=== PATIENT | male | born 1960 | race Caucasian/White ===

== ENCOUNTER 2017-03-05 09:08 | Inpatient (IN) | payer OTHER ==
[2017-03-05 09:19] VITALS: BMI 26.2
[2017-03-05] MEDS ORDERED: Sodium Chloride 0.9% 1,000 ML IV ONE (09:19)
[2017-03-05] MEDS ORDERED: Sodium Chloride 0.9% 1,000 ML ONE (09:30)
[2017-03-05 09:52] LABS: BASO % 0.7 % (0.0-2.0); EOS # 0.1 K/uL (0.0-0.7); EOS % 1.1 % (0.0-4.0); HEMATOCRIT 42.2 % (35.0-51.0); LYMPH # 0.5 K/uL (1.0-4.3); LYMPH % 8.2 % (20.0-40.0); MEAN CELL VOLUME 92.8 fL (80.0-94.0); MEAN CORPUSCULAR HEMOGLOBIN 31.1 pg (27.0-31.0); MEAN CORPUSCULAR HGB CONC 33.5 g/dL (33.0-37.0); MEAN PLATELET VOLUME 9.1 fL (7.2-11.7); MONO # 0.5 K/uL (0.0-0.8); NRBC % 0.1 % (0.0-2.0); PLATELET COUNT 186 K/uL (130-400); RED CELL DISTRIBUTION WIDTH 14.8 % (11.5-14.5); WHITE BLOOD COUNT 5.7 K/uL (4.8-10.8)
[2017-03-05 10:02] LABS: CHLORIDE 94 mmol/L (98-107); POTASSIUM 4.9 mmol/L (3.6-5.2); SODIUM 132 mmol/L (132-148)
[2017-03-05 10:04] LABS: ALB/GLOB RATIO 1.4 (1.0-2.1); AST/SGOT 212 U/L (17-59); BILIRUBIN,TOTAL 1.9 mg/dL (0.2-1.3); CARBON DIOXIDE 26 mmol/L (22-30); GFR AFRICAN-AMERICAN > 60; TOTAL PROTEIN 8.8 g/dL (6.3-8.3)
[2017-03-05 10:05] LABS: ALCOHOL SERUM < 10 mg/dl (0-10); ALKALINE PHOSPHATASE 106 U/L (38-126); ALT/SGPT 81 U/L (21-72); BLOOD UREA NITROGEN 10 mg/dL (9-20); CALCIUM 8.4 mg/dl (8.6-10.4); GLUCOSE,RANDOM 162 mg/dL (75-110)
--- NOTE | 2017-03-05 10:15 | CT ---
PROCEDURE: CT HEAD WITHOUT CONTRAST. HISTORY: R/O Bleed COMPARISON: None available. TECHNIQUE: Axial computed tomography images were obtained through the head/brain without intravenous contrast. Radiation dose: Total exam DLP = 925.62 MGy-cm. This CT exam was performed using one or more of the following dose reduction techniques: Automated exposure control, adjustment of the mA and/or kV according to patient size, and/or use of iterative reconstruction technique. FINDINGS: HEMORRHAGE: No intracranial hemorrhage. BRAIN: No mass effect or edema. Intracranial atherosclerotic vascular calcifications. Mild scattered white matter hypodensities, which are nonspecific, but often seen with chronic microvascular ischemic disease. Please note that MRI with diffusion imaging is more sensitive in the detection of acute ischemic event. VENTRICLES: No hydrocephalus. CALVARIUM: Unremarkable. PARANASAL SINUSES: Unremarkable as visualized. No significant inflammatory changes. MASTOID AIR CELLS: Unremarkable as visualized. No inflammatory changes. OTHER FINDINGS: The right mandibular condyle displaced anterior medially. IMPRESSION: Anterior medial displacement of the right mandibular condyle; correlate clinically. No acute intracranial pathology identified.
--- NOTE | 2017-03-05 10:37 | RAD ---
PROCEDURE: CHEST RADIOGRAPH, 1 VIEW HISTORY: SOB COMPARISON: 06/05/2015 FINDINGS: LUNGS: Mild venous congestion. Bilateral hilar prominence. PLEURA: No pneumothorax or pleural fluid seen. CARDIOVASCULAR: Normal. OSSEOUS STRUCTURES: No significant abnormalities. VISUALIZED UPPER ABDOMEN: Normal. OTHER FINDINGS: None. IMPRESSION: Mild venous congestion. Bilateral hilar prominence.
[2017-03-05 10:48] LABS: RBC URINE 1 /hpf (0-3); URINE BACTERIA RARE (<OCC); URINE BILIRUBIN NEGATIVE (NEGATIVE); URINE BLOOD 1+ (NEGATIVE); URINE COLOR Yellow (YELLOW); URINE GLUCOSE (UA) NORMAL (Normal); URINE KETONE TRACE mg/dL (NEGATIVE); URINE LEUKOCYTE ESTERASE NEG Leu/uL (Negative); URINE PROTEIN NEGATIVE (NEGATIVE); URINE UROBILINOGEN NORMAL mg/dL (0.2-1.0); WBC URINE < 1 /hpf (0-5)
--- NOTE | 2017-03-05 10:50 | C.PDOC ---
History Of Present Illness <Tiki,Mela A - Last Filed: 03/05/17 18:41> <Marcelo Al - Last Filed: 03/05/17 19:46> 57 y/o male presents to the ED s/p questionable syncopal episode. Mother states she found him on the floor at home. Denies incontinence, or witnessed seizure activity. Denies vomiting, chest pain, SOB or any other complaints. Pt complaining of right sided dental pain. PMHx schizophrenia, seizures. (Mela Fairbanks) History Per: Patient History/Exam Limitations: None Onset/Duration Of Symptoms: Hrs Exacerbating Factor(s): Unknown Use Of Anticoag/Antiplatelets: No Speech Is: Normal Severity: Mild Recent travel outside of the [place]: No Additional History Per: Family Associated Symptoms: denies: Fever, Chest Pain, Headache, Vomiting, Incontinence <TikiMela Domonique - Last Filed: 03/05/17 18:41> <Marcelo Al - Last Filed: 03/05/17 19:46> Time Seen by Provider: 03/05/17 09:14 Chief Complaint (Nursing): Altered Mental Status Past Medical History Reviewed: Historical Data, Nursing Documentation, Vital Signs - Medical History PMH: Anxiety, Depression Family History: States: Unknown Family Hx - Social History Hx Alcohol Use: No Hx Substance Use: No <Tiki,Mela A - Last Filed: 03/05/17 18:41> Review Of Systems Except As Marked, All Systems Reviewed And Found Negative. Constitutional: Negative for: Fever ENT: Positive for: Other (right sided dental pain) Cardiovascular: Negative for: Chest Pain Respiratory: Negative for: Shortness of Breath Gastrointestinal: Negative for: Vomiting Genitourinary: Negative for: Incontinence Neurological: Negative for: Seizures, Headache <TikiMela Domonique - Last Filed: 03/05/17 18:41> Physical Exam - Physical Exam Appears: Non-toxic, No Acute Distress Skin: Warm, Dry, No Rash Head: Atraumatic, Normacephalic Eye(s): bilateral: Normal Inspection, PERRL, EOMI Nose: Normal Oral Mucosa: Moist Tongue: Normal Appearing, No Bite Lips: Normal Appearing, No Swelling Teeth: Normal Dentition Gingiva: Normal Appearing Throat: Normal, No Erythema Neck: Normal, Normal ROM, Supple Chest: Symmetrical Cardiovascular: Rhythm Regular, No Murmur Respiratory: Normal Breath Sounds, No Rales, No Rhonchi, No Wheezing Gastrointestinal/Abdominal: Normal Exam, Soft, No Tenderness Extremity: Normal ROM Extremity: Bilateral: Atraumatic Neurological/Psych: Oriented x3, Normal Speech, Normal Cognition, Normal Motor, Normal Sensation <Mela Fairbanks - Last Filed: 03/05/17 18:41> ED Course And Treatment - Laboratory Results Result Diagrams: 03/05/17 09:46 03/05/17 15:39 Lab Interpretation: Normal ECG: Interpreted By Az ECG Rhythm: Sinus Rhythm ECG Interpretation: Normal Rate From EC O2 Sat by Pulse Oximetry: 98 Pulse Ox Interpretation: Normal - Radiology CXR: Interpreted by Az CXR Interpretation: Yes: No Acute Disease - CT Scan/US No standard instances Other Rad Studies (CT/US): Read By Radiologist, Radiology Report Reviewed CT/US Interpretation: FINDINGS: HEMORRHAGE: No intracranial hemorrhage. BRAIN : No mass effect or edema. Intracranial atherosclerotic vascular calcifications. Mild scattered white matter hypodensities, which are nonspecific , but often seen with chronic microvascular ischemic disease. Please note that MRI with diffusion imaging is more sensitive in the detection of acute ischemic event. VENTRICLES: No hydrocephalus. CALVARIUM: Unremarkable. PARANASAL SINUSES: Unremarkable as visualized. No significant inflammatory changes. MASTOID AIR CELLS: Unremarkable as visualized. No inflammatory changes. OTHER FINDINGS: The right mandibular condyle displaced anterior medially. IMPRESSION : Anterior medial displacement of the right mandibular condyle; correlate clinically. No acute intracranial pathology identified. Progress Note: Patient arrived via BLS after a ? syncope event at home. on evaluation able to open and close mouth without difficulty. Plan: CT head, labs , UA, CXR, IV fluids. Treated with Haldol 5 mg IM and Ativan 2 mg IM. Treated with clonidine 0.1 mg PO and norvasc 5 mg PO. Treated with ativan 2 mg PO for agitation. On re-evaluation lungs clear, in no distress. EKG: NSR @ 100 (-) ST -T changes, normal EKG Reassessment Condition: Improved <Mela Fairbanks - Last Filed: 03/05/17 18:41> - Laboratory Results Result Diagrams: 03/05/17 09:46 03/05/17 15:39 ECG: Interpreted By Me, Viewed By Me ECG Rhythm: Sinus Rhythm ECG Interpretation: Normal, No Acute Changes Interpretation Of ECG: NSR, normal tracings. Pulse Ox Interpretation: Normal - Radiology CXR: Read By Radiologist CXR Interpretation: No: Infiltrates, Cardiomegaly, Pnemothorax - CT Scan/US No standard instances Other Rad Studies (CT/US): Read By Radiologist, Radiology Report Reviewed <Marcelo Al - Last Filed: 03/05/17 19:46> ED OBSERVATION <Mela Fairbanks - Last Filed: 03/05/17 18:41> <Marcelo Al - Last Filed: 03/05/17 19:46> - Goals of Observation Goals of observation are:: Psych screening (Mela Fairbanks) Disposition - Disposition Disposition Time: 19:00 - POA Present On Arrival: None <Mela Fairbanks - Last Filed: 03/05/17 18:41> <Marcelo Al - Last Filed: 03/05/17 19:46> - Disposition Condition: STABLE - Clinical Impression Clinical Impression: Schizophrenia - PA / [employer] OPERATOR / Resident Statement MD/DO has reviewed & agrees with the documentation as recorded. - Scribe Statement The provider has reviewed the documentation as recorded by the Scribe <Mlea Fairbanks - Last Filed: 03/05/17 18:41> <Marcelo Al - Last Filed: 03/05/17 19:46> - Scribe Statement Vinicius Gomez All medical record entries made by the Scribe were at my direction and personally dictated by me. I have reviewed the chart and agree that the record accurately reflects my personal performance of the history, physical exam, medical decision making, and the department course for this patient. I have also personally directed, reviewed, and agree with the discharge instructions and disposition. (Mela Fairbanks) Physician Patient Turnover Patient Signed Over To: Marcelo Al Handoff Comments: [facility] <Mela Fairbanks - Last Filed: 03/05/17 18:41>
[2017-03-05 11:31] LABS: EOSINOPHIL 1 % (0-4); NEUTROPHIL 82 % (50-75); TOTAL CELLS COUNTED 100
[2017-03-05 16:09] LABS: CHLORIDE 95 mmol/L (98-107); POTASSIUM 3.2 mmol/L (3.6-5.2); SODIUM 133 mmol/L (132-148)
[2017-03-05 16:11] LABS: CARBON DIOXIDE 28 mmol/L (22-30); GFR AFRICAN-AMERICAN > 60
[2017-03-05 16:12] LABS: ALB/GLOB RATIO 1.1 (1.0-2.1); ALKALINE PHOSPHATASE 102 U/L (38-126); ALT/SGPT 87 U/L (21-72); AST/SGOT 224 U/L (17-59); BILIRUBIN,TOTAL 1.2 mg/dL (0.2-1.3); BLOOD UREA NITROGEN 10 mg/dL (9-20); CALCIUM 8.3 mg/dl (8.6-10.4); GLUCOSE,RANDOM 119 mg/dL (75-110); TOTAL PROTEIN 7.8 g/dL (6.3-8.3)
[2017-03-05] MEDS ORDERED: Potassium Chloride 20 mEq/15 ml LIQ UD PO STA (19:37)
[2017-03-05] MEDS ORDERED: Potassium Chloride 20 mEq ER Tab PO ONE (20:40)
[2017-03-05] MEDS ORDERED: Potassium Chloride 20 mEq ER Tab PO STA (20:47)
[2017-03-06 00:40] LABS: CHLORIDE 98 mmol/L (98-107); SODIUM 135 mmol/L (132-148)
[2017-03-06 00:42] LABS: BLOOD UREA NITROGEN 7 mg/dL (9-20); CARBON DIOXIDE 25 mmol/L (22-30); GFR AFRICAN-AMERICAN > 60; GLUCOSE,RANDOM 115 mg/dL (75-110)
[2017-03-06 00:43] LABS: CALCIUM 8.4 mg/dl (8.6-10.4)
[2017-03-06] MEDS: Folic Acid 1 MG, Thiamine 100 MG, Multivitamin (MVI) 10 ML in Dextrose 5% In Water 1,00... IV SCH ×2 (04:45→14:30)
[2017-03-06 04:52] LABS: CHLORIDE 99 mmol/L (98-107); POTASSIUM 3.1 mmol/L (3.6-5.2); SODIUM 135 mmol/L (132-148)
[2017-03-06 04:54] LABS: BILIRUBIN,TOTAL 1.3 mg/dL (0.2-1.3); GFR AFRICAN-AMERICAN > 60
[2017-03-06 04:55] LABS: ALB/GLOB RATIO 1.1 (1.0-2.1); ALKALINE PHOSPHATASE 103 U/L (38-126); ALT/SGPT 94 U/L (21-72); AST/SGOT 206 U/L (17-59); BLOOD UREA NITROGEN 6 mg/dL (9-20); CARBON DIOXIDE 26 mmol/L (22-30); GLUCOSE,RANDOM 112 mg/dL (75-110); TOTAL PROTEIN 8.1 g/dL (6.3-8.3)
[2017-03-06 04:56] LABS: CALCIUM 8.6 mg/dl (8.6-10.4)
--- NOTE | 2017-03-06 05:26 | CP.PCM.HP ---
History of Present Illness - History of Present Illness History of Present Illness: CC: AMS 57 M with PMH of ETOH abuse, anxiety, depression, schizophrenia was brought in by EMS to [facility] ED for complaint of altered mental status. As per ED, history was provided by patient's family. Patient was upstairs in bathroom when the family heard a loud thud. Family went upstairs and saw patient shaking while foaming at the mouth. EMS was called and when patient came to he became very combative. Upon arrival, he was given multiple doses of haldol and ativan. Psychiatry was initiated contacted for the admission. They called [facility] [place] their unit. [facility] screener arrived but patient was agitated, therefore unable to have an appropriate conversation. It was determined that patient was medically unstable to be admitted to psychiatry so the admission was changed for telemetry. Patient has an extensive history of drinking but family stated he had previously quit. ROS unotainable due to mental status. PMH: ETOH abuse, anxiety, depression, schizophrenia Meds: None Allergy: NKDA PSH: None Hosp: Unknown FH: Unknown Social: lives with family, as per family extensive drinker, unknown for tobacco/ illicit drug use Present on Admission - Present on Admission Any Indicators Present on Admission: No History of DVT/PE: No History of Uncontrolled Diabetes: No Urinary Catheter: No Decubitus Ulcer Present: No Review of Systems - Review of Systems Systems not reviewed;Unavailable: Altered Mental Status Past Patient History - Past Social History Smoking Status: Never Smoked - CARDIAC Hx Cardiac Disorders: No Hx Hypertension: No - PULMONARY Hx Tuberculosis: No - NEUROLOGICAL HX Cerebrovascular Accident: No Hx Seizures: No - HEENT Hx Deafness: Yes (rt ear) - HEMATOLOGICAL/ONCOLOGICAL Hx Cancer: No Hx Human Immunodeficiency Virus (HIV): No - GENITOURINARY/GYNECOLOGICAL Hx Sexually Transmitted Disorders: No - PSYCHIATRIC Hx Anxiety: Yes Hx Depression: Yes Hx Substance Use: No - SURGICAL HISTORY Hx Surgeries: No - ANESTHESIA Hx Anesthesia: No Meds Allergies/Adverse Reactions: Allergies Allergy/AdvReac Type Severity Reaction Status Date / Time No Known Allergies Allergy Verified 03/05/17 09:26 Physical Exam - Constitutional Appears: Confused - Head Exam Head Exam: NORMOCEPHALIC - Eye Exam Eye Exam: EOMI, Normal appearance Pupil Exam: PERRL - ENT Exam ENT Exam: Mucous Membranes Moist - Neck Exam Neck exam: Positive for: Normal Inspection - Respiratory Exam Respiratory Exam: Clear to Auscultation Bilateral, NORMAL BREATHING PATTERN - Cardiovascular Exam Cardiovascular Exam: Tachycardia, REGULAR RHYTHM, +S1, +S2 - GI/Abdominal Exam GI & Abdominal Exam: Distended (mild), Normal Bowel Sounds, Soft. absent: Firm , Guarding, Rebound - Extremities Exam Extremities exam: Positive for: normal capillary refill, pedal pulses present ( R > L, PT 2 + bilateral). Negative for: pedal edema - Back Exam Back exam: absent: CVA tenderness (L), CVA tenderness (R) - Neurological Exam Neurological exam: Altered - Psychiatric Exam Psychiatric exam: Flat Affect - Skin Skin Exam: Dry, Intact Results - Vital Signs Recent Vital Signs: Last Vital Signs Temp 98.3 F 03/05/17 09:11 Pulse 92 H 03/06/17 03:56 Resp 21 03/06/17 03:56 BP 141/110 H 03/06/17 03:56 Pulse Ox 94 L 03/06/17 03:56 - Labs Result Diagrams: 03/05/17 09:46 03/06/17 04:25 Labs: Laboratory Results - last 24 hr 03/06/17 03/06/17 04:25 04:25 PT 11.2 INR 1.0 APTT 31 Sodium 135 Potassium 3.1 L Chloride 99 Carbon Dioxide 26 Anion Gap 13 BUN 6 L Creatinine 0.7 L Est GFR ( Amer) > 60 Est GFR (Non-Af Amer) > 60 Random Glucose 112 H Calcium 8.6 Total Bilirubin 1.3 AST 206 H ALT 94 H Alkaline Phosphatase 103 NT-Pro-B Natriuret Pep 335 Total Protein 8.1 Albumin 4.3 Globulin 3.9 Albumin/Globulin Ratio 1.1 Assessment & Plan - Assessment and Plan (Free Text) Plan: 1. Suspected Seizure could be due to ETOH withdrawal possibility of DTs telemetry NPO except Meds Critical care consult, Dr. Zhu, help appreciated Psychiatry consult, Dr Medrano, help appreciated Tox screen negative, Alcohol < 10 Banana bag 100 cc/hr Ativan 2 mg IVP Q3H Haldol 5 mg IM Q8H PRN Congentin 2 mg PO Q6H PRN CIWA protocol Aspiration Precautions Seizure precautions Fall risk protocol 2. Transaminitis Downtrending T. bilil 1.3 Ast 206 Alt 94 Alk phos 103 3. Hypokalemia K+ 3.1 KCL 10 mEq IVPB x 3 Mg and Phos ordered for this AM recheck and replenish as needed 4. Schizophrenia Psychiatry consult, Dr Medrano, help appreciated Ativan 2 mg IVP Q3H Haldol 5 mg IM Q8H PRN Congentin 2 mg PO Q6H PRN 5. Anxiety/Depression Psychiatry consult, Dr Medrano, help appreciated Trazodone 50 mg PO HS 6. Prophylactic Measures Protonix 40 mg IVP Scds Zofran 4 mg IVP Q6H
[2017-03-06 06:38] VITALS: RESP 20
[2017-03-06 08:26] LABS: BASO # 0.1 K/uL (0.0-0.2); BASO % 0.8 % (0.0-2.0); EOS # 0.1 K/uL (0.0-0.7); EOS % 1.2 % (0.0-4.0); LYMPH # 0.7 K/uL (1.0-4.3); LYMPH % 9.1 % (20.0-40.0); MEAN CELL VOLUME 92.5 fL (80.0-94.0); MEAN CORPUSCULAR HGB CONC 33.6 g/dL (33.0-37.0); MEAN PLATELET VOLUME 9.1 fL (7.2-11.7); MONO # 0.7 K/uL (0.0-0.8); MONO % 9.3 % (0.0-10.0); PLATELET COUNT 166 K/uL (130-400); WHITE BLOOD COUNT 7.2 K/uL (4.8-10.8)
[2017-03-06 08:44] LABS: PHOSPHOROUS 2.8 mg/dL (2.5-4.5)
[2017-03-06 08:45] LABS: MAGNESIUM 2.1 mg/dL (1.6-2.3)
[2017-03-06 09:07] LABS: T4 7.55 ug/dL (5.5-11.0)
[2017-03-06 09:20] LABS: THYROID STIMULATING HORMONE 4.02 mIU/L (0.46-4.68)
[2017-03-06 09:32] LABS: EOSINOPHIL 1 % (0-4); NEUTROPHIL 79 % (50-75); TOTAL CELLS COUNTED 100
[2017-03-06] MEDS ORDERED: Potassium Chloride 20 mEq ER Tab PO SCH (10:00)
--- NOTE | 2017-03-06 12:10 | CP.PCM.CON ---
History of Present Illness - History of Present Illness History of Present Illness: 57-year-old male with past medical history of depression, anxiety, schizophrenia , ethanol abuse. Admitted for EtOH withdrawal. ICU consulted for possibility of delirium tremens. Past Patient History - Past Medical History & Family History Past Medical History?: Yes - Past Social History Smoking Status: Never Smoked - CARDIAC Hx Cardiac Disorders: No Hx Hypertension: No - PULMONARY Hx Tuberculosis: No - NEUROLOGICAL HX Cerebrovascular Accident: No Hx Seizures: No - HEENT Hx Deafness: Yes (rt ear) - RENAL Hx Chronic Kidney Disease: No - ENDOCRINE/METABOLIC Hx Endocrine Disorders: No - HEMATOLOGICAL/ONCOLOGICAL Hx Cancer: No Hx Human Immunodeficiency Virus (HIV): No - INTEGUMENTARY Hx Dermatological Problems: No - MUSCULOSKELETAL/RHEUMATOLOGICAL Hx Musculoskeletal Disorders: Yes Hx Falls: Yes - GASTROINTESTINAL Hx Gastrointestinal Disorders: No - GENITOURINARY/GYNECOLOGICAL Hx Sexually Transmitted Disorders: No - PSYCHIATRIC Hx Anxiety: Yes Hx Depression: Yes Hx Substance Use: No - SURGICAL HISTORY Hx Surgeries: No - ANESTHESIA Hx Anesthesia: No Meds Allergies/Adverse Reactions: Allergies Allergy/AdvReac Type Severity Reaction Status Date / Time No Known Allergies Allergy Verified 03/05/17 09:26 - Medications Medications: Current Medications Benztropine Mesylate (Cogentin) 2 mg PO Q6H PRN PRN Reason: Extra Pyramidal Symptoms Last Admin: 03/05/17 16:53 Dose: 2 mg Diphenhydramine HCl (Benadryl) 50 mg PO Q6 PRN PRN Reason: Extra Pyramidal Symptoms Haloperidol (Haldol) 5 mg PO Q8 PRN PRN Reason: Moderate Agitation Last Admin: 03/05/17 16:53 Dose: 5 mg Haloperidol Lactate (Haldol) 5 mg IM Q8 PRN PRN Reason: Moderate Agitation Heparin Sodium (Porcine) (Heparin) 5,000 units SC Q12 STEVEN Last Admin: 03/06/17 09:54 Dose: 5,000 units Folic Acid 1 mg/ Thiamine HCl 100 mg/ Multivitamins/Vitamin C 10 ml/ Dextrose 1 ,011.2 mls @ 100 mls/hr IV .Q10H7M STEVEN Last Admin: 03/06/17 04:45 Dose: 100 mls/hr Lorazepam (Ativan) 2 mg IVP Q3H PRN PRN Reason: Anxiety Lorazepam (Ativan) 1 mg IVP Q6H STEVEN Last Admin: 03/06/17 09:39 Dose: 1 mg Ondansetron HCl (Zofran Inj) 4 mg IVP Q6 PRN PRN Reason: Nausea/Vomiting Pantoprazole Sodium (Protonix Inj) 40 mg IVP DAILY [facility] Last Admin: 03/06/17 09:50 Dose: 40 mg Trazodone HCl (Desyrel) 50 mg PO HS [facility] Last Admin: 03/05/17 21:15 Dose: 50 mg Results - Vital Signs Recent Vital Signs: Last Vital Signs Temp 98.0 F 03/06/17 08:46 Pulse 98 H 03/06/17 08:46 Resp 20 03/06/17 08:46 BP 153/100 H 03/06/17 08:46 Pulse Ox 97 03/06/17 08:46 - Labs Result Diagrams: 03/06/17 08:16 03/06/17 04:25 Labs: Laboratory Results - last 24 hr 03/06/17 03/06/17 03/06/17 04:25 04:25 06:48 WBC RBC Hgb Hct MCV MCH MCHC RDW Plt Count MPV Neut % (Auto) Lymph % (Auto) Dubois % (Auto) Eos % (Auto) Baso % (Auto) Neut # Lymph # Dubois # Eos # Baso # Neutrophils % (Manual) Band Neutrophils % Lymphocytes % (Manual) Monocytes % (Manual) Eosinophils % (Manual) Platelet Estimate RBC Morphology PT 11.2 INR 1.0 APTT 31 Sodium 135 Potassium 3.1 L Chloride 99 Carbon Dioxide 26 Anion Gap 13 BUN 6 L Creatinine 0.7 L Est GFR ( Amer) > 60 Est GFR (Non-Af Amer) > 60 POC Glucose (mg/dL) 122 H Random Glucose 112 H Hemoglobin A1c Calcium 8.6 Phosphorus Magnesium Total Bilirubin 1.3 AST 206 H ALT 94 H Alkaline Phosphatase 103 NT-Pro-B Natriuret Pep 335 Total Protein 8.1 Albumin 4.3 Globulin 3.9 Albumin/Globulin Ratio 1.1 Triglycerides Cholesterol LDL Cholesterol Direct HDL Cholesterol Thyroxine (T4) TSH 3rd Generation 03/06/17 03/06/17 03/06/17 08:16 08:16 08:16 WBC 7.2 RBC 4.43 Hgb 13.8 Hct 41.0 MCV 92.5 MCH 31.0 MCHC 33.6 RDW 15.0 H Plt Count 166 MPV 9.1 Neut % (Auto) 79.6 H Lymph % (Auto) 9.1 L Dubois % (Auto) 9.3 Eos % (Auto) 1.2 Baso % (Auto) 0.8 Neut # 5.7 Lymph # 0.7 L Dubois # 0.7 Eos # 0.1 Baso # 0.1 Neutrophils % (Manual) 79 H Band Neutrophils % 1 Lymphocytes % (Manual) 11 L Monocytes % (Manual) 8 Eosinophils % (Manual) 1 Platelet Estimate Normal RBC Morphology Normal PT INR APTT Sodium Potassium Chloride Carbon Dioxide Anion Gap BUN Creatinine Est GFR ( Amer) Est GFR (Non-Af Amer) POC Glucose (mg/dL) Random Glucose Hemoglobin A1c 5.5 Calcium Phosphorus 2.8 Magnesium 2.1 Total Bilirubin AST ALT Alkaline Phosphatase NT-Pro-B Natriuret Pep 322 Total Protein Albumin Globulin Albumin/Globulin Ratio Triglycerides 42 Cholesterol 210 H LDL Cholesterol Direct 41 HDL Cholesterol 125 H Thyroxine (T4) 7.55 TSH 3rd Generation 4.02 Assessment & Plan (1) Alcohol withdrawal syndrome Assessment and Plan: 57-year-old male with past medical history of depression, anxiety, schizophrenia , ethanol abuse. Admitted for EtOH withdrawal. Neuro: Patient is alert but disoriented. Patient has tremors, and currently not having hallucinations. Patient has a history of schizophrenia, so hallucinations may be his baseline since he is noncompliant with medications. Continue Haldol when necessary, continue CIWA protocol and increased Ativan dosing, both basal and when necessary dosing. Currently not any DTs, but most likely ethanol withdrawal complicated by schizophrenia. I recommend avoiding use of Benadryl as this can increase delirium. Pulm: No acute issues, breathing spontaneously on room air. CV: Hemodynamically stable Hem: No acute issues Renal: No acute issues, urine output within normal limits, we will monitor. Endo: No acute issues GI: Nothing by mouth for now with current delirium. ID: No acute issues DVT proph - heparin subcutaneous GI proph - none currently indicated arreola for strict I/O's during acute illness Code status - full code Patient is currently clinically stable going through EtOH withdrawal, please reconsult ICU if patient's clinical status worsens. Crtical Care Time spent 35 minutes The documented time is cumulative and includes review of patient data/exams/labs /chart review and examination of the patient on rounds and throughout the day; time is exclusive of any procedures or teaching time. Status: Acute
--- NOTE | 2017-03-06 15:15 | PCM.PSYCH ---
Initial Psychiatric Evaluation - Initial Psychiatric Evaluation History of Present Illness and Precipitating Events: Came to see the patient, but patient was delirious, and was not oriented to time place and person. Will come later to evaluate. Current Medications: Active Medications Generic Name Dose Route Start Last Admin Trade Name Freq PRN Reason Stop Dose Admin Benztropine Mesylate 2 mg 03/05/17 15:00 03/05/17 16:53 Cogentin PO 2 mg Q6H PRN Administration Extra Pyramidal Symptoms Haloperidol 5 mg 03/05/17 14:43 03/05/17 16:53 Haldol PO 5 mg Q8 PRN Administration Moderate Agitation Haloperidol Lactate 5 mg 03/05/17 14:43 Haldol IM Q8 PRN Moderate Agitation Heparin Sodium (Porcine) 5,000 units 03/06/17 10:00 03/06/17 09:54 Heparin SC 5,000 units Q12 STEVEN Administration Folic Acid 1 mg/ Thiamine HCl 1,011.2 mls @ 100 mls/hr 03/06/17 04:00 14:30 100 mg/ Multivitamins/Vitamin IV 100 mls/hr C 10 ml/ Dextrose .Q10H7M STEVEN Administration Lorazepam 2 mg 03/06/17 05:17 Ativan IVP Q3H PRN Anxiety Lorazepam 1 mg 03/06/17 09:15 03/06/17 09:39 Ativan IVP 1 mg Q6H STEVEN Administration Ondansetron HCl 4 mg 03/06/17 05:18 Zofran Inj IVP Q6 PRN Nausea/Vomiting Pantoprazole Sodium 40 mg 03/06/17 10:00 03/06/17 09:50 Protonix Inj IVP 40 mg DAILY STEVEN Administration Trazodone HCl 50 mg 03/05/17 22:00 03/05/17 21:15 Desyrel PO 50 mg HS STEVEN Administration Past Psychiatric History - Past Psychiatric History Pertinent Medical Hx (Current Medical&Sleep Prob, Allergies): Allergies Allergy/AdvReac Type Severity Reaction Status Date / Time No Known Allergies Allergy Verified 03/05/17 09:26 No Known Home Med [No Known Home Med] 06/05/15
[2017-03-06] MEDS ORDERED: Folic Acid 1 MG, Thiamine 100 MG, Multivitamin (MVI) 10 ML in Dextrose 5% In Water 1,00... IV ONE (15:45)
--- NOTE | 2017-03-06 18:17 | CP.PCM.PN ---
<Malika León - Last Filed: 03/06/17 22:15> Subjective - Date & Time of Evaluation Date of Evaluation: 03/06/17 Time of Evaluation: 10:00 - Subjective Subjective: PGY1 Medicine note for Dr. Crawley Pt seen and evaluated at bedside. Nursing reports no adverse events overnight. Patient is AO x 0. Patient seems comfortable and in no acute distress. Pt responds to his name, but is unable to answer questions about his health. ROS unobtainable. Objective - Vital Signs/Intake and Output Vital Signs (last 24 hours): Temp Pulse Resp BP Pulse Ox 98.0 F 98 H 20 153/100 H 97 03/06/17 08:46 03/06/17 08:46 03/06/17 08:46 03/06/17 08:46 03/06/17 08:46 - Medications Medications: Current Medications Benztropine Mesylate (Cogentin) 2 mg PO Q6H PRN PRN Reason: Extra Pyramidal Symptoms Last Admin: 03/05/17 16:53 Dose: 2 mg Chlordiazepoxide (Librium) 50 mg PO Q6H [facility] Heparin Sodium (Porcine) (Heparin) 5,000 units SC Q12 [facility] Last Admin: 03/06/17 09:54 Dose: 5,000 units Folic Acid 1 mg/ Thiamine HCl 100 mg/ Multivitamins/Vitamin C 10 ml/ Dextrose 1 ,011.2 mls @ 100 mls/hr IV .Q10H7M ONE Stop: 03/07/17 01:51 Ondansetron HCl (Zofran Inj) 4 mg IVP Q6 PRN PRN Reason: Nausea/Vomiting Pantoprazole Sodium (Protonix Inj) 40 mg IVP DAILY [facility] Last Admin: 03/06/17 09:50 Dose: 40 mg Risperidone (Risperdal Tab) 0.5 mg PO Q12 [facility] Trazodone HCl (Desyrel) 50 mg PO HS [facility] Last Admin: 03/05/17 21:15 Dose: 50 mg - Labs Labs: 03/06/17 08:16 03/06/17 04:25 PT 11.2 SECONDS (9.7-12.2) 03/06/17 04:25 INR 1.0 03/06/17 04:25 APTT 31 SECONDS (21-34) 03/06/17 04:25 - Constitutional Appears: Confused - Head Exam Head Exam: ATRAUMATIC, NORMAL INSPECTION, NORMOCEPHALIC - Eye Exam Eye Exam: Normal appearance. absent: Conjunctival injection, Scleral icterus - ENT Exam ENT Exam: Mucous Membranes Dry - Neck Exam Neck Exam: Normal Inspection - Respiratory Exam Respiratory Exam: Clear to Ausculation Bilateral, NORMAL BREATHING PATTERN. absent: Accessory Muscle Use, Rales, Rhonchi, Wheezes - Cardiovascular Exam Cardiovascular Exam: Tachycardia, REGULAR RHYTHM, +S1, +S2 - GI/Abdominal Exam GI & Abdominal Exam: Soft, Normal Bowel Sounds. absent: Firm, Guarding, Rigid - Extremities Exam Extremities Exam: Normal Capillary Refill, Normal Inspection. absent: Pedal Edema Additional comments: hands in mittens - Neurological Exam Neurological Exam: Alert, Awake. absent: Oriented x3 - Psychiatric Exam Additional comments: confused - Skin Skin Exam: Dry, Intact Assessment and Plan - Assessment and Plan (Free Text) Assessment: 57 M with PMH of ETOH abuse, anxiety, depression, schizophrenia was brought in by EMS for AMS Plan: 1. Suspected Seizure could be due to ETOH withdrawal possibility of DTs as patient had DT in the past as per family telemetry NPO except Meds Patient has hx of DTs as per friend at bedside Tox screen negative, Alcohol < 10 Banana bag 100 cc/hr Librium 100mg po one time Librium 50mg po q6h prn HOLD IF PATIENT IS ASLEEP Congentin 2 mg PO Q6H PRN CIWA protocol Aspiration Precautions Seizure precautions Fall risk protocol Critical care consult, Dr. Zhu, help appreciated Psychiatry consult, Dr Medrano, help appreciated 2. Transaminitis Downtrending T. bilil 1.3 Ast 206 Alt 94 Alk phos 103 3. Hypokalemia K+ 3.1 KCL 10 mEq IVPB x 3 Mg and Phos ordered for this AM recheck and replenish as needed 4. Schizophrenia Psychiatry consult, Dr Medrano, help appreciated Cogentin 2 mg PO Q6H PRN 5. Anxiety/Depression Psychiatry consult, Dr Medrano, help appreciated Trazodone 50 mg PO HS Risperidone 0.5mg po q12 6. Prophylactic Measures Protonix 40 mg IVP Scds Zofran 4 mg IVP Q6H Heparin 5000U SC q12 Plan discussed with Dr Misbah León PGY1 <Poli Crawley Jr. - Last Filed: 03/08/17 13:32> Objective - Vital Signs/Intake and Output Vital Signs (last 24 hours): Temp Pulse Resp BP Pulse Ox 97.8 F 110 H 20 141/98 H 95 03/07/17 23:20 03/07/17 23:20 03/07/17 23:20 03/07/17 23:20 03/07/17 23:20 Intake and Output: 03/08/17 03/08/17 06:59 18:59 Intake Total 1100 Balance 1100 - Labs Labs: 03/07/17 07:11 03/07/17 07:11 PT 12.0 SECONDS (9.7-12.2) 03/07/17 07:11 INR 1.1 03/07/17 07:11 APTT 29 SECONDS (21-34) 03/07/17 07:11 Attending/Attestation - Attestation I have personally seen and examined this patient.: Yes I have fully participated in the care of the patient.: Yes I have reviewed all pertinent clinical information, including history, physical exam and plan: Yes Notes (Text): 03/08/17 13:32 Agree with resident note and findings
[2017-03-07 07:24] LABS: BASO # 0.1 K/uL (0.0-0.2); BASO % 0.9 % (0.0-2.0); EOS # 0.1 K/uL (0.0-0.7); EOS % 1.3 % (0.0-4.0); HEMATOCRIT 42.5 % (35.0-51.0); INR 1.1; LYMPH # 0.6 K/uL (1.0-4.3); LYMPH % 8.2 % (20.0-40.0); MEAN CELL VOLUME 91.8 fL (80.0-94.0); MEAN CORPUSCULAR HEMOGLOBIN 30.8 pg (27.0-31.0); MEAN CORPUSCULAR HGB CONC 33.5 g/dL (33.0-37.0); MEAN PLATELET VOLUME 9.1 fL (7.2-11.7); MONO # 0.7 K/uL (0.0-0.8); MONO % 10.3 % (0.0-10.0); NRBC % 0.4 % (0.0-2.0); PLATELET COUNT 190 K/uL (130-400); RED CELL DISTRIBUTION WIDTH 14.6 % (11.5-14.5); WHITE BLOOD COUNT 7.1 K/uL (4.8-10.8)
[2017-03-07 07:32] LABS: CHLORIDE 98 mmol/L (98-107)
--- NOTE | 2017-03-07 07:32 | CP.PCM.PN ---
<Malika León - Last Filed: 03/07/17 21:53> Subjective - Date & Time of Evaluation Date of Evaluation: 03/07/17 Time of Evaluation: 10:15 - Subjective Subjective: PGY1 Medicine note for Dr. Crawley Pt seen and evaluated at bedside. Nursing reports no adverse events overnight. Patient is AO x 0. Patient continues to speak incoherently and ROS unobtainable. Objective - Vital Signs/Intake and Output Vital Signs (last 24 hours): Temp Pulse Resp BP Pulse Ox 98.8 F 111 H 20 145/98 H 97 03/06/17 23:00 03/06/17 23:00 03/06/17 23:00 03/06/17 23:00 03/06/17 23:00 Intake and Output: 03/07/17 03/07/17 06:59 18:59 Intake Total 1000 Output Total 4100 Balance -3100 - Medications Medications: Current Medications Benztropine Mesylate (Cogentin) 2 mg PO Q6H PRN PRN Reason: Extra Pyramidal Symptoms Last Admin: 03/07/17 04:32 Dose: 2 mg Chlordiazepoxide (Librium) 50 mg PO Q6H [facility] Last Admin: 03/07/17 06:30 Dose: Not Given Heparin Sodium (Porcine) (Heparin) 5,000 units SC Q12 [facility] Last Admin: 03/06/17 22:10 Dose: 5,000 units Ondansetron HCl (Zofran Inj) 4 mg IVP Q6 PRN PRN Reason: Nausea/Vomiting Pantoprazole Sodium (Protonix Inj) 40 mg IVP DAILY [facility] Last Admin: 03/06/17 09:50 Dose: 40 mg Risperidone (Risperdal Tab) 0.5 mg PO Q12 [facility] Last Admin: 03/06/17 23:00 Dose: 0.5 mg Trazodone HCl (Desyrel) 50 mg PO HS [facility] Last Admin: 03/06/17 23:01 Dose: 50 mg - Labs Labs: 03/06/17 08:16 03/06/17 04:25 PT 12.0 SECONDS (9.7-12.2) 03/07/17 07:11 INR 1.1 03/07/17 07:11 APTT 29 SECONDS (21-34) 03/07/17 07:11 - Constitutional Appears: Non-toxic, No Acute Distress - Head Exam Head Exam: NORMAL INSPECTION - Eye Exam Eye Exam: Normal appearance. absent: Conjunctival injection, Scleral icterus - ENT Exam ENT Exam: Mucous Membranes Moist - Neck Exam Neck Exam: Normal Inspection - Respiratory Exam Respiratory Exam: Clear to Ausculation Bilateral. absent: Accessory Muscle Use , Rales, Rhonchi, Wheezes, Respiratory Distress - Cardiovascular Exam Cardiovascular Exam: Tachycardia, REGULAR RHYTHM, +S1, +S2 - GI/Abdominal Exam GI & Abdominal Exam: Soft, Normal Bowel Sounds. absent: Distended, Firm, Guarding - Extremities Exam Additional comments: hands in mittens - Neurological Exam Neurological Exam: Alert, Awake. absent: Oriented x3 - Psychiatric Exam Psychiatric exam: Normal Affect, Normal Mood - Skin Skin Exam: Dry, Intact, Normal Color, Warm Assessment and Plan - Assessment and Plan (Free Text) Assessment: 57 M with PMH of ETOH abuse, anxiety, depression, schizophrenia was brought in by EMS for AMS Plan: Suspected Seizure could be due to ETOH withdrawal possibility of DTs as patient had DT in the past as per family telemetry NPO except Meds Patient has hx of DTs as per friend at bedside Tox screen negative, Alcohol < 10 Banana bag 100 cc/hr Librium 100mg po one time Librium 50mg po q6h prn HOLD IF PATIENT IS ASLEEP Congentin 2 mg PO Q6H PRN CIWA protocol Aspiration Precautions Seizure precautions Fall risk protocol Critical care consult, Dr. Zhu, help appreciated Psychiatry consult, Dr Medrano, help appreciated Tachycardia Lopressor 25mg po bid Transaminitis Downtrending T. bilil 1.3 Ast 206 Alt 94 Alk phos 103 Hypokalemia K+ 3.1 KCL 10 mEq IVPB x 3 Mg and Phos ordered for this AM recheck and replenish as needed Schizophrenia Psychiatry consult, Dr Medrano, help appreciated Cogentin 2 mg PO Q6H PRN Anxiety/Depression Psychiatry consult, Dr Medrano, help appreciated Trazodone 50 mg PO HS Risperidone 0.5mg po q12 Prophylactic Measures Protonix 40 mg IVP Scds Zofran 4 mg IVP Q6H Heparin 5000U SC q12 NS @ 125cc/hr Regular diet Plan discussed with Dr Misbah León PGY1 <Poli Crawley Jr. - Last Filed: 03/08/17 13:35> Objective - Vital Signs/Intake and Output Vital Signs (last 24 hours): Temp Pulse Resp BP Pulse Ox 97.8 F 110 H 20 141/98 H 95 03/07/17 23:20 03/07/17 23:20 03/07/17 23:20 03/07/17 23:20 03/07/17 23:20 Intake and Output: 03/08/17 03/08/17 06:59 18:59 Intake Total 1100 Balance 1100 - Labs Labs: 03/07/17 07:11 03/07/17 07:11 PT 12.0 SECONDS (9.7-12.2) 03/07/17 07:11 INR 1.1 03/07/17 07:11 APTT 29 SECONDS (21-34) 03/07/17 07:11 Attending/Attestation - Attestation I have personally seen and examined this patient.: Yes I have fully participated in the care of the patient.: Yes I have reviewed all pertinent clinical information, including history, physical exam and plan: Yes Notes (Text): 03/08/17 13:35 Agree with resident note and findings
[2017-03-07 07:33] LABS: POTASSIUM 2.8 mmol/L (3.6-5.2); SODIUM 135 mmol/L (132-148)
[2017-03-07 07:35] LABS: CARBON DIOXIDE 23 mmol/L (22-30); GFR AFRICAN-AMERICAN > 60
[2017-03-07 07:36] LABS: ALKALINE PHOSPHATASE 92 U/L (38-126); ALT/SGPT 77 U/L (21-72); AST/SGOT 164 U/L (17-59); BILIRUBIN,TOTAL 1.2 mg/dL (0.2-1.3); BLOOD UREA NITROGEN 5 mg/dL (9-20); CALCIUM 8.3 mg/dl (8.6-10.4); GLUCOSE,RANDOM 106 mg/dL (75-110); PHOSPHOROUS 3.5 mg/dL (2.5-4.5); TOTAL PROTEIN 7.5 g/dL (6.3-8.3)
[2017-03-07] MEDS ORDERED: Potassium Chloride 20 mEq/15 ml LIQ UD PO ONE (07:55)
[2017-03-07] MEDS ORDERED: Potassium Chloride 20 mEq ER Tab PO ONE (07:56)
[2017-03-07 09:09] LABS: NEUTROPHIL 83 % (50-75); TOTAL CELLS COUNTED 100
[2017-03-07] MEDS ORDERED: Sodium Chloride 0.9% 1,000 ML IV SCH (16:30)
[2017-03-07 17:57] VITALS: TEMP 97.8
[2017-03-08 00:11] VITALS: BP 141/98; PULSE 110; O2SAT 95
[2017-03-08 06:13] LABS: VENOUS BLOOD GAS BASE EXCESS -14.5 mmol/L (0.0-2.0); VENOUS BLOOD GAS PCO2 57 mmHg (40-60); VENOUS BLOOD PH 7.06 (7.32-7.43)
--- NOTE | 2017-03-08 06:41 | CP.PCM.PRO ---
Pronouncement of Note - Clinical Findings Physical Exam: No Response Verbal/Painful Stimuli, Absent Peripheral Pulses{ Carotid & Femoral}, Absent Heart & Breath Sounds, No Pupillary Light Reflex, No Corneal Reflex, Pupils Fixed & Dilated, Absence of Vital Signs - Pronouncement Time Time of Pronouncement of : 06:31 Additional Comments: Code Bandar called. CPR done from 5:50 - 6:31 PM. Please refer to code blue sheet in chart. - Notifications Pronouncement Notifications: Family Notified, Atending Notified Manager Books Notified: Yes - [place] [id number]
--- NOTE | 2017-03-08 07:33 | CP.PCM.PN ---
<Renee Calixto - Last Filed: 03/08/17 07:24> Subjective - Date & Time of Evaluation Date of Evaluation: 03/08/17 Time of Evaluation: 07:00 - Subjective Subjective: Rapid response was called at 5:45 AM. Patient was noted to be bradycardic on the monitor per nursing. Patient did not have a pulse Code blue was called CPR was started Patient was Intubated by Dr. Raymundo. Epi was given 9x every 3-5 minutes Bicarb was administered 3 times Calcium was given twice Magnesium was given once Amiodarone was given one Patient was shocked multiple times VBG shock was done. Electrolytes were normal. Lactate was 10. Code was run from 5:50-6:31 AM No pulses obtained. Time of : 6:31 Dr. Crawley was notified. Patient's next of kin per EMR was notified: Corine Adams (sibling) [phone]. She stated that she would notify her mother and she did not want us to notify her because she was afraid her mother would panic. They will be coming to the hospital to see the patient. *Please refer to code blue documentation sheet in the chart for full details. Objective - Vital Signs/Intake and Output Vital Signs (last 24 hours): Temp Pulse Resp BP Pulse Ox 97.8 F 110 H 20 141/98 H 95 03/07/17 23:20 03/07/17 23:20 03/07/17 23:20 03/07/17 23:20 03/07/17 23:20 Intake and Output: 03/08/17 03/08/17 06:59 18:59 Intake Total 1100 Balance 1100 - Medications Medications: Current Medications Benztropine Mesylate (Cogentin) 2 mg PO Q6H PRN PRN Reason: Extra Pyramidal Symptoms Last Admin: 03/07/17 15:36 Dose: 2 mg Chlordiazepoxide (Librium) 50 mg PO Q6H [facility] Last Admin: 03/08/17 05:30 Dose: Not Given Heparin Sodium (Porcine) (Heparin) 5,000 units SC Q12 [facility] Last Admin: 03/07/17 21:20 Dose: 5,000 units Sodium Chloride (Sodium Chloride 0.9%) 1,000 mls @ 150 mls/hr IV .Q6H40M [facility] Last Admin: 03/07/17 17:30 Dose: 150 mls/hr Metoprolol Tartrate (Lopressor) 25 mg PO BID [facility] Last Admin: 03/07/17 17:58 Dose: 25 mg Ondansetron HCl (Zofran Inj) 4 mg IVP Q6 PRN PRN Reason: Nausea/Vomiting Pantoprazole Sodium (Protonix Inj) 40 mg IVP DAILY [facility] Last Admin: 03/07/17 09:18 Dose: 40 mg Risperidone (Risperdal Tab) 0.5 mg PO Q12 [facility] Last Admin: 03/07/17 21:20 Dose: 0.5 mg Trazodone HCl (Desyrel) 50 mg PO HS [facility] Last Admin: 03/07/17 21:20 Dose: 50 mg - Labs Labs: 03/07/17 07:11 03/07/17 07:11 PT 12.0 SECONDS (9.7-12.2) 03/07/17 07:11 INR 1.1 03/07/17 07:11 APTT 29 SECONDS (21-34) 03/07/17 07:11 <Kareem Raymundo P - Last Filed: 03/08/17 23:39> Objective - Vital Signs/Intake and Output Vital Signs (last 24 hours): Temp Pulse Resp BP Pulse Ox 97.8 F 110 H 20 141/98 H 95 03/07/17 23:20 03/07/17 23:20 03/07/17 23:20 03/07/17 23:20 03/07/17 23:20 - Labs Labs: 03/07/17 07:11 03/07/17 07:11 PT 12.0 SECONDS (9.7-12.2) 03/07/17 07:11 INR 1.1 03/07/17 07:11 APTT 29 SECONDS (21-34) 03/07/17 07:11 Attending/Attestation - Attestation I have personally seen and examined this patient.: Yes I have fully participated in the care of the patient.: Yes I have reviewed all pertinent clinical information, including history, physical exam and plan: Yes Notes (Text): 03/08/17 23:36 In addition to above Details of the code please refer code sheet, patient was also given trial of 2 amps of bicarb, lidocaine bolus following vbg in addition to above. Patient was intubated by me, mac 4 blade used, ET size 7.5, single attempt, under direct vision of the vocal cords the ET tip visualized passing through the cords. Color change noticed on the CO2 detector, air sound heard b/l, not in the epigastric area, no sedation was needed as patient was completely unresponsive.
--- NOTE | 2017-03-13 01:43 | CARD ---
APPROVED REPORT EKG Measurement Heart [id number] <Conclusion> Normal sinus rhythm Normal ECG
== END 2017-03-08 06:30 | DRG 750 ==
LOC: C.ER 09:08 → C.9OBSV 12:07 → C.6T 03-06 04:21 → OBSVTOIN 03-06 04:21
PROVIDERS: ADMIT Internal Medicine; ATTEND Internal Medicine
DX: F10.239 Alcohol dependence with withdrawal, unspecified (principal); F20.9 Schizophrenia, unspecified; E87.5 Hyperkalemia; H91.90 Unspecified hearing loss, unspecified ear; Z91.14 Patient's other noncompliance with medication regimen; K08.89 Other specified disorders of teeth and supporting structures; F41.8 Other specified anxiety disorders; R74.0 Nonspecific elevation of levels of transaminase and lactic acid dehydrogenase [LDH]; R00.0 Tachycardia, unspecified